=== PATIENT | female | born 1990 | race Caucasian/White ===

== ENCOUNTER 2017-09-28 06:14 | Inpatient (IN) | payer OTHER ==
[~2017-09-28 06:14] MED LIST: Citric Acid/Sodium Citrate Solution 30 ML Cup PO ONE; Lactated Ringers 1,000 ML IV SCH; Scopolamine 1.5 MG Transdermal Patch TOP ONE; Sodium Chloride 0.9% 10 ML Syringe FLUSH PRN
[2017-09-28] MEDS ORDERED: ceFAZolin 1 GM Vial ONE ×2 (06:36→07:01)
--- NOTE | 2017-09-28 07:49 | PCM.SN ---
- Free Text/Narrative Note: Pt for repeat c section. Procedure and risks explained to the pt to include bleeding, infection, injury to bowel, bladder, blood vessel as well as the . She expressed understanding and asks us to proceed.
[2017-09-28] MEDS ORDERED: Lactated Ringers 1,000 ML IV ONE ×2 (08:00→14:00)
[2017-09-28] MEDS ORDERED: Ketorolac 30 MG/ML SDV IVPUSH ONE (08:00)
[2017-09-28] MEDS ORDERED: Oxytocin 10 Units/1 ML SDV IV ONE ×2 (08:00)
[2017-09-28] MEDS ORDERED: Phenylephrine 1% 10 MG/ML SDV IV ONE (08:00)
[2017-09-28] MEDS ORDERED: Ondansetron 4 MG/2 ML SDV IVPUSH ONE (08:00)
[2017-09-28] MEDS ORDERED: Morphine PF 10 MG/10 ML SDV ONE (08:00)
[2017-09-28] MEDS ORDERED: ceFAZolin 1 GM Vial IV ONE (08:00)
[2017-09-28] MEDS ORDERED: Dexamethasone 4 MG/ML 5 ML MDV IVPUSH ONE (08:00)
[2017-09-28] MEDS ORDERED: ceFAZolin 2 GM in Premix Bag 1 BAG IV ONE (08:00)
[2017-09-28] MEDS ORDERED: Naloxone 0.4 MG/ML SDV IVPUSH PRN ×3 (09:00→11:04)
[2017-09-28] MEDS ORDERED: ePHEDrine 50 MG/ML SDV IVPUSH PRN (09:00)
[2017-09-28] MEDS ORDERED: diphenhydrAMINE 50 MG/ML SDV IVPUSH PRN ×2 (09:00→11:04)
--- NOTE | 2017-09-28 09:00 | PCM.OPNOTE ---
- General Post-Op/Procedure Note Date of Surgery/Procedure: 09/28/17 Operative Procedure(s): repeat c section Findings: term male apgars 9/9 LOT presentation Pre Op Diagnosis: term Post-Op Diagnosis: Same Anesthesia Technique: Spinal Primary Surgeon: Matthew Baldwin Secondary Surgeon: Travis Crespo Anesthesia Provider: Melanie Garay Pathology: placenta Fluid Replacement, Intraop: 1,500 EBL in mLs: 700 Complications: None Condition: Good Free Text/Narrative:: see dictation
[2017-09-28] MEDS ORDERED: Nalbuphine 10 MG/1 ML Vial IVPUSH PRN (11:04)
[2017-09-28] MEDS ORDERED: Meperidine PF 25 MG/ML Syringe IVPUSH PRN (11:04)
[2017-09-28] MEDS ORDERED: hydrOXYzine HCl 50 MG/ML SDV IM PRN (11:04)
[2017-09-28] MEDS ORDERED: Promethazine 25 MG/ML SDV IV PRN ×2 (11:04)
[2017-09-28] MEDS ORDERED: Morphine 2 MG/ML Syringe IVPUSH PRN (11:04)
[2017-09-28] MEDS ORDERED: Naloxone 0.4 MG in Sodium Chloride 0.9% 100 ML IV PRN (11:04)
--- NOTE | 2017-09-28 11:46 | OR ---
DATE OF OPERATION: 09/28/2017 SURGEON: Matthew Baldwin MD PROCEDURE PERFORMED: Repeat section. PREOPERATIVE DIAGNOSIS: Term , history of previous section. POSTOPERATIVE DIAGNOSIS: Term , history of previous section. INDICATIONS FOR PROCEDURE: This is a G2, P1 white female at 39 weeks gestation. She had a section for her previous delivery and presents now for a repeat . DESCRIPTION OF OPERATION: After an excellent spinal anesthetic was administered, the patient was prepped and draped in usual sterile manner. An incision was made through the previous scar tissue. The underlying subcu fat was divided using electrocautery. The fascia was incised and incision extended both laterally through the fascia using Batres scissors. The superior edge of the fascial incision was grasped with Dusty's and elevated, and the flap was developed sharply, and the process was repeated inferiorly using Batres scissors. Midline peritoneum was grasped, elevated, and incised and the abdominal cavity was entered. A bladder flap was developed using Metzenbaum suture dissection. Incision was then made in the uterus. After entering the uterine cavity, the incision was extended laterally using fingers. Head was delivered. Child was presenting LOT. Anterior shoulder and posterior shoulder were then developed. The child had a robust cry on delivery. Oral and nasal passages were suctioned. The cord was clamped, divided, and the child was passed off the field. The cord blood sample was then obtained and the placenta was then delivered. The uterus was then delivered outside of the abdominal cavity and the inside of the uterine cavity was wiped clean. The uterine incision was then closed using a running number #1 Vicryl with a simple interrupted locking stitch for initial layer and then a running Lembert suture to close external layer. There was a small bleeding point, which was controlled with a [id number] 3-0 Vicryl. After assuring excellent hemostasis of the uterus, the pouch of Celio and right and left colic gutters were irrigated. The uterus was then returned to normal anatomic position. The fascia was then closed with a running #0 Vicryl and the skin was closed with lauren. Needle, sponge, and instrument counts were reported as correct. The patient was taken to recovery room in good condition. Estimated blood loss was 700 mL. She got a total of 1500 mL of crystalloid. ESCALATOR SERVICE MECHANIC SURGEON: Travis Crespo MD /[id number] /MARLINL
[2017-09-28] MEDS: Lactated Ringers 1,000 ML IV SCH ×2 (13:46→15:10)
[2017-09-28] MEDS: Ketorolac 30 MG/ML SDV IVPUSH SCH (19:46)
[2017-09-29] MEDS: Ketorolac 30 MG/ML SDV IVPUSH SCH
[2017-09-29] MEDS ORDERED: Ketorolac 30 MG/ML SDV IVPUSH SCH (03:00)
[2017-09-29] MEDS ORDERED: Bisacodyl 10 MG Supp RECTAL ONE (09:49)
[2017-09-29] MEDS ORDERED: Ibuprofen 600 MG Tab PO PRN (09:50)
--- NOTE | 2017-09-29 09:57 | PCM.PNPP ---
- General Info Date of Service: 09/29/17 Functional Status: Reports: Pain Controlled, Tolerating Diet, Urinating - Review of Systems General: Reports: No Symptoms Cardiovascular: Reports: No Symptoms Gastrointestinal: Reports: No Symptoms Genitourinary: Reports: No Symptoms - Patient Data Vital Signs - Most Recent: Last Vital Signs Temp 36.7 C 09/29/17 07:35 Pulse 66 09/29/17 07:35 Resp 16 09/29/17 07:35 BP 93/52 L 09/29/17 07:35 Pulse Ox 99 09/29/17 07:35 Weight - Most Recent: 96.162 kg I&O - Last 24 Hours: Intake & Output 09/28/17 09/29/17 09/29/17 22:59 06:59 14:59 Intake Total 500 Output Total 900 600 500 Balance -400 -600 -500 Lab Results - Last 24 Hours: Laboratory Results - last 24 hr 09/29/17 Range/Units 06:40 WBC 10.8 (4.5-12.0) X10-3/uL RBC 2.85 L (3.23-5.20) x10(6)uL Hgb 8.9 L (11.5-15.5) g/dL Hct 25.4 L (30.0-51.3) % MCV 89.0 (80-96) fL MCH 31.0 (27.7-33.6) pg MCHC 34.9 (32.2-35.4) g/dL RDW 12.8 (11.5-15.5) % Plt Count 115 L (125-369) X10(3)uL MPV 10.6 H (7.4-10.4) fL Neut % (Auto) 75.8 (46-82) % Lymph % (Auto) 17.7 (13-37) % [place] % (Auto) 5.9 (4-12) % Eos % (Auto) 0 L (1.0-5.0) % Baso % (Auto) 0 (0-2) % Neut # (Auto) 8.3 (1.6-8.3) # Lymph # (Auto) 1.9 (0.6-5.0) # [place] # (Auto) 0.6 (0.0-1.3) # Eos # (Auto) 0.0 (0.0-0.8) # Baso # (Auto) 0.0 (0.0-0.2) # Med Orders - Current: Current Medications Bisacodyl (Dulcolax) 10 mg RECTAL ONETIME ONE Stop: 09/29/17 09:50 Diphenhydramine HCl (Benadryl) 25 mg IVPUSH Q6H PRN PRN Reason: Itching or Nausea Last Admin: 09/28/17 11:05 Dose: 25 mg Diphenhydramine HCl (Benadryl) 25 mg IVPUSH ASDIRECTED PRN PRN Reason: PRURITUS Last Admin: 09/28/17 13:26 Dose: 25 mg Ephedrine Sulfate (Ephedrine Sulfate) 5 mg IVPUSH ASDIRECTED PRN PRN Reason: Other Hydroxyzine HCl (Vistaril) 25 - 50 mg IM Q4H PRN PRN Reason: N/V Naloxone HCl 0.4 mg/ Sodium (Chloride) 101 mls @ 25 mls/hr IV ASDIRECTED PRN PRN Reason: RESPIRATORY RATE Meperidine HCl (Demerol) 12.5 mg IVPUSH Q1H PRN PRN Reason: BREAKTHRU PAIN Miscellaneous Information (Remove Patch) 1 ea TRDERM ONETIME ONE Stop: 10/01/17 06:01 Morphine Sulfate (Morphine) 2 mg IVPUSH Q1H PRN PRN Reason: BREAKTHRU PAIN Nalbuphine HCl (Nubain) 10 mg IVPUSH Q1H PRN PRN Reason: PRURITUS Naloxone HCl (Narcan) 0.1 mg IVPUSH ONETIME PRN PRN Reason: Respiratory Depression Naloxone HCl (Narcan) 0.4 mg IVPUSH ASDIRECTED PRN PRN Reason: RESPIRATORY STATUS Naloxone HCl (Narcan) 0.1 mg IVPUSH ASDIRECTED PRN PRN Reason: RESPIRATORY RATE Promethazine HCl (Phenergan) 6.25 mg IV Q4H PRN PRN Reason: N/V Promethazine HCl (Phenergan) 12.5 mg IV Q4H PRN PRN Reason: N/V Sodium Chloride (Saline Flush) 10 ml FLUSH ASDIRECTED PRN PRN Reason: Keep Vein Open Last Admin: 09/28/17 07:26 Dose: 10 ml Discontinued Medications Cefazolin Sodium (Ancef) Confirm Administered Dose 2 gm .ROUTE .STK-MED ONE Stop: 09/28/17 06:37 Last Admin: 09/28/17 07:23 Dose: Not Given Cefazolin Sodium (Ancef) Confirm Administered Dose 1 gm .ROUTE .STK-MED ONE Stop: 09/28/17 07:02 Last Admin: 09/28/17 07:23 Dose: Not Given Citric Acid/Sodium Citrate (Bicitra Solution) 30 ml PO ONETIME ONE Stop: 09/28/17 06:01 Last Admin: 09/28/17 07:22 Dose: 30 ml Lactated Ringer's (Ringers, Lactated) 1,000 mls @ 999 mls/hr IV .BOLUS [facility] Last Admin: 09/28/17 07:24 Dose: 999 mls/hr Cefazolin Sodium/Dextrose 2 gm (/ Premix) 50 mls @ 100 mls/hr IV ONETIME ONE Stop: 09/28/17 08:29 Last Admin: 09/28/17 07:24 Dose: 100 mls/hr Lactated Ringer's (Ringers, Lactated) 1,000 mls @ 150 mls/hr IV ASDIRECTED [facility] Last Admin: 09/28/17 15:10 Dose: 150 mls/hr Lactated Ringer's (Ringers, Lactated) 1,000 mls @ 999 mls/hr IV BOLUS ONE Stop: 09/28/17 15:00 Last Admin: 09/28/17 14:26 Dose: Not Given Ketorolac Tromethamine (Toradol) 30 mg IVPUSH Q8H [facility] Stop: 10/03/17 16:01 Last Admin: 09/29/17 00:00 Dose: Not Given Ketorolac Tromethamine (Toradol) 30 mg IVPUSH Q8H [facility] Last Admin: 09/29/17 03:59 Dose: 30 mg Scopolamine (Transderm-Scop) 1.5 mg TOP ONETIME ONE Stop: 09/28/17 06:01 Last Admin: 09/28/17 07:22 Dose: 1.5 mg - Interaction Support Person: Significant Other - Recovery Exam Fundal Tone: Firm Fundal Level: At Umbilicus Fundal Placement: Midline Lochia Amount: Small Lochia Color: Rubra/Red Bladder Status: Indwelling Catheter in Place Urinary Elimination: Indwelling Catheter - Exam Lungs: Clear to Auscultation, Normal Respiratory Effort Cardiovascular: Regular Rate, Regular Rhythm GI/Abdominal Exam: Normal Bowel Sounds, Soft, Non-Tender Skin: Warm, Dry Wound/Incisions: Other (some venous drainage. right lateral wound. ) Neurological: Normal Speech - Problem List & Annotations (1) Blood loss anemia SNOMED Code(s): 864235746 Code(s): D50.0 - IRON DEFICIENCY ANEMIA SECONDARY TO BLOOD LOSS (CHRONIC) Status: Acute Current Visit: No (2) delivery delivered SNOMED Code(s): 048160608 Code(s): O82 - ENCOUNTER FOR DELIVERY WITHOUT INDICATION Status: Acute Current Visit: No - Problem List Review Problem List Initiated/Reviewed/Updated: Yes - My Orders Last 24 Hours: My Active Orders 09/28/17 09:00 Ambulate [RC] PER UNIT ROUTINE Communication Order [RC] Per Unit Routine Communication Order [RC] Per Unit Routine Communication Order [RC] Per Unit Routine Intake and Output [RC] ,, Wound Care [RC] 08,16,00 Naloxone [Narcan] 0.1 mg IVPUSH ONETIME PRN diphenhydrAMINE [Benadryl] 25 mg IVPUSH Q6H PRN ePHEDrine [ePHEDrine Sulfate] 5 mg IVPUSH ASDIRECTED PRN Assess Lochia [WOMSER] Per Unit Routine Assess Uterine Involution [WOMSER] Per Unit Routine 09/28/17 09:01 Notify Provider Intake and Out [RC] ASDIRECTED RT Incentive Spirometry [RC] Q2HWA 09/28/17 Dinner Clear Liquid Diet [DIET] 09/29/17 09:49 Bisacodyl [Dulcolax] 10 mg RECTAL ONETIME ONE 09/29/17 09:50 Ibuprofen [Motrin] 600 mg PO Q6H PRN 09/29/17 09:52 Convert IV to Saline Lock [OM.PC] Routine 09/29/17 10:00 Vit W-Ca,Fe,FA(<1 mg) [ Vitamins] 1 tab PO DAILY 09/29/17 Lunch Regular Diet [DIET] 10/01/17 06:00 Remove Patch 1 ea TRDERM ONETIME ONE - Assessment Assessment:: pod 1 stable exam - Plan Plan:: doing well. po pain medication regular diet.
[2017-09-29] MEDS ORDERED: Prenatal Multivitamin with Calcium/Folic Acid/Fe Fumarate Cap PO SCH (10:00)
[2017-09-29 15:56] VITALS: BP 106/66
--- NOTE | 2017-09-29 17:05 | PCM.DCSUM1 ---
Discharge Summary - Hospital Course Free Text/Narrative:: Pt admitted and underwent a repeat c section. Pt was started with a clear liquid diet that night. Bowel function returned the next morning. She had her diet advanced, which she tolerated. Good activity and pain control. Desired to go home evening of POD #1. - Discharge Data Discharge Date: 09/29/17 Discharge Disposition: Home, Self-Care 01 Condition: Good - Discharge Diagnosis/Problem(s) (1) Blood loss anemia SNOMED Code(s): 291792716 ICD Code: D50.0 - IRON DEFICIENCY ANEMIA SECONDARY TO BLOOD LOSS (CHRONIC) Status: Acute Current Visit: No (2) delivery delivered SNOMED Code(s): 036993710 ICD Code: O82 - ENCOUNTER FOR DELIVERY WITHOUT INDICATION Status: Acute Current Visit: No - Patient Summary/Data Operative Procedure(s) Performed: repeat c section - Patient Instructions Diet: Usual Diet as Tolerated, No Alcoholic Beverages Activity: No Strenuous Activities, Rest and Relax Today Driving: Do Not Drive (for 7 days ) Showering/Bathing: Shower in AM Notify Provider of: Fever, Increased Pain, Swelling and Redness, Drainage - Discharge Plan Home Medications: Home Meds Vit W-Ca,Fe,FA(<1 mg) [ Vitamins] 1 tab PO DAILY 01/10/16 [ History] Ibuprofen [IJD: Ibuprofen] 600 mg PO Q6H tablet 02/10/16 [Rx] Ondansetron [IJP: Ondansetron ODT] 4 mg PO TID PRN 09/27/17 [History] Patient Handouts: Shaken Baby Syndrome, , Taking Your Child's Temperature, Rooming-In With Your [place], Keeping Your Safe and Healthy , [id number], Well Sketch Maker - [place], Baby Safe Sleeping Information, Circumcision, , Care After, Qyll-px-Sytl, Delivery, Care After, Baby Care, Care After Delivery, Breast Pumping Tips , [id number]-[id number], SIDS Prevention Information, Baby Safe Sleeping Information, Tbwa-wa-Axvb, Delivery, Challenges and Solutions, Jaundice, [place], Joua-do-Oxnw Referrals: Matthew Baldwin MD [Physician] - 10/06/17 (for staple removal ) - Discharge Summary/Plan Comment DC Time >30 min.: No - Patient Data Vitals - Most Recent: Last Vital Signs Temp 36.5 C 09/29/17 15:20 Pulse 78 09/29/17 15:20 Resp 16 09/29/17 15:20 BP 106/66 09/29/17 15:20 Pulse Ox 99 09/29/17 15:40 Weight - Most Recent: 96.162 kg I&O - Last 24 hours: Intake & Output 09/29/17 09/29/17 09/29/17 06:59 14:59 22:59 Intake Total 360 Output Total 600 1000 Balance -600 -640 Lab Results - Last 24 hrs: Laboratory Results - last 24 hr 09/29/17 Range/Units 06:40 WBC 10.8 (4.5-12.0) X10-3/uL RBC 2.85 L (3.23-5.20) x10(6)uL Hgb 8.9 L (11.5-15.5) g/dL Hct 25.4 L (30.0-51.3) % MCV 89.0 (80-96) fL MCH 31.0 (27.7-33.6) pg MCHC 34.9 (32.2-35.4) g/dL RDW 12.8 (11.5-15.5) % Plt Count 115 L (125-369) X10(3)uL MPV 10.6 H (7.4-10.4) fL Neut % (Auto) 75.8 (46-82) % Lymph % (Auto) 17.7 (13-37) % [place] % (Auto) 5.9 (4-12) % Eos % (Auto) 0 L (1.0-5.0) % Baso % (Auto) 0 (0-2) % Neut # (Auto) 8.3 (1.6-8.3) # Lymph # (Auto) 1.9 (0.6-5.0) # [place] # (Auto) 0.6 (0.0-1.3) # Eos # (Auto) 0.0 (0.0-0.8) # Baso # (Auto) 0.0 (0.0-0.2) # Med Orders - Current: Current Medications Diphenhydramine HCl (Benadryl) 25 mg IVPUSH Q6H PRN PRN Reason: Itching or Nausea Last Admin: 09/28/17 11:05 Dose: 25 mg Diphenhydramine HCl (Benadryl) 25 mg IVPUSH ASDIRECTED PRN PRN Reason: PRURITUS Last Admin: 09/28/17 13:26 Dose: 25 mg Ephedrine Sulfate (Ephedrine Sulfate) 5 mg IVPUSH ASDIRECTED PRN PRN Reason: Other Hydroxyzine HCl (Vistaril) 25 - 50 mg IM Q4H PRN PRN Reason: N/V Naloxone HCl 0.4 mg/ Sodium (Chloride) 101 mls @ 25 mls/hr IV ASDIRECTED PRN PRN Reason: RESPIRATORY RATE Ibuprofen (Motrin) 600 mg PO Q6H PRN PRN Reason: Pain Last Admin: 09/29/17 10:38 Dose: 600 mg Meperidine HCl (Demerol) 12.5 mg IVPUSH Q1H PRN PRN Reason: BREAKTHRU PAIN Miscellaneous Information (Remove Patch) 1 ea TRDERM ONETIME ONE Stop: 10/01/17 06:01 Morphine Sulfate (Morphine) 2 mg IVPUSH Q1H PRN PRN Reason: BREAKTHRU PAIN Nalbuphine HCl (Nubain) 10 mg IVPUSH Q1H PRN PRN Reason: PRURITUS Naloxone HCl (Narcan) 0.1 mg IVPUSH ONETIME PRN PRN Reason: Respiratory Depression Naloxone HCl (Narcan) 0.4 mg IVPUSH ASDIRECTED PRN PRN Reason: RESPIRATORY STATUS Naloxone HCl (Narcan) 0.1 mg IVPUSH ASDIRECTED PRN PRN Reason: RESPIRATORY RATE Multivit/Folic Acid/Iron (-U) 1 each PO DAILY JUDY Last Admin: 09/29/17 10:38 Dose: 1 each Promethazine HCl (Phenergan) 6.25 mg IV Q4H PRN PRN Reason: N/V Promethazine HCl (Phenergan) 12.5 mg IV Q4H PRN PRN Reason: N/V Sodium Chloride (Saline Flush) 10 ml FLUSH ASDIRECTED PRN PRN Reason: Keep Vein Open Last Admin: 09/28/17 07:26 Dose: 10 ml Discontinued Medications Bisacodyl (Dulcolax) 10 mg RECTAL ONETIME ONE Stop: 09/29/17 09:50 Last Admin: 09/29/17 10:28 Dose: Not Given Cefazolin Sodium (Ancef) Confirm Administered Dose 2 gm .ROUTE .STK-MED ONE Stop: 09/28/17 06:37 Last Admin: 09/28/17 07:23 Dose: Not Given Cefazolin Sodium (Ancef) Confirm Administered Dose 1 gm .ROUTE .STK-MED ONE Stop: 09/28/17 07:02 Last Admin: 09/28/17 07:23 Dose: Not Given Citric Acid/Sodium Citrate (Bicitra Solution) 30 ml PO ONETIME ONE Stop: 09/28/17 06:01 Last Admin: 09/28/17 07:22 Dose: 30 ml Lactated Ringer's (Ringers, Lactated) 1,000 mls @ 999 mls/hr IV .BOLUS [facility] Last Admin: 09/28/17 07:24 Dose: 999 mls/hr Cefazolin Sodium/Dextrose 2 gm (/ Premix) 50 mls @ 100 mls/hr IV ONETIME ONE Stop: 09/28/17 08:29 Last Admin: 09/28/17 07:24 Dose: 100 mls/hr Lactated Ringer's (Ringers, Lactated) 1,000 mls @ 150 mls/hr IV ASDIRECTED [facility] Last Admin: 09/28/17 15:10 Dose: 150 mls/hr Lactated Ringer's (Ringers, Lactated) 1,000 mls @ 999 mls/hr IV BOLUS ONE Stop: 09/28/17 15:00 Last Admin: 09/28/17 14:26 Dose: Not Given Ketorolac Tromethamine (Toradol) 30 mg IVPUSH Q8H [facility] Stop: 10/03/17 16:01 Last Admin: 09/29/17 00:00 Dose: Not Given Ketorolac Tromethamine (Toradol) 30 mg IVPUSH Q8H [facility] Last Admin: 09/29/17 03:59 Dose: 30 mg Scopolamine (Transderm-Scop) 1.5 mg TOP ONETIME ONE Stop: 09/28/17 06:01 Last Admin: 09/28/17 07:22 Dose: 1.5 mg *Q Meaningful Use (DIS) - VTE *Q VTE Criteria *Q: - Stroke *Q Stroke Criteria *Q: - AMI *Q AMI Criteria *Q:
== END 2017-09-29 17:25 | disposition home or self-care (01) | DRG 766 ==
LOC: FB.OB 06:14
PROVIDERS: ADMIT Surgery; ATTEND Surgery
PROC: 10D00Z1 Extraction of Products of Conception, Low, Open Approach (ICD-10-PCS; principal; 2017-09-28)
DX: O34.211 Maternal care for low transverse scar from previous cesarean delivery (principal); N85.8 Other specified noninflammatory disorders of uterus; Z3A.39 39 weeks gestation of pregnancy; Z37.0 Single live birth; D50.0 Iron deficiency anemia secondary to blood loss (chronic)
CPT/HCPCS: 36415; 85025; 86850; 86900; 86901; 88307; A9270-GY; J0131; J0690; J1100; J1200; J1885; J2270; J2370; J2405; J2590; J7050; J7120